=== PATIENT | female | born 1950 | race Caucasian/White ===

== ENCOUNTER 2018-01-23 07:38 | Emergency (ER) | payer OTHER, MEDICARE ==
[~2018-01-23] VITALS: Ht 154.9 cm; Wt 85.1 kg
[2018-01-23 08:15] LABS: BASOPHIL (%) 0.4 % (0-1); EOSINOPHIL (%) 0.2 % (0-5); HEMATOCRIT 41.9 % (36.0-46.0); HEMOGLOBIN 13.9 G/DL (11.9-15.5); IMMATURE GRANULOCYTE (%) 0.1 % (0.0-0.7); LYMPHOCYTE (%) 8.5 % (15-42); LYMPHOCYTE COUNT 0.7 K/uL (1.0-2.8); MCH 30.9 PG (29.0-34.0); MCHC 33.2 G/DL (30.0-36.0); MCV 93.1 FL (83-99); MONOCYTE (%) 3.2 % (3-12); MONOCYTE COUNT 0.3 K/uL (0-0.8); NEUTROPHIL (%) 87.6 % (45-76); NEUTROPHIL COUNT 7.2 K/uL (1.8-6.4); PLATELET COUNT 218 K/uL (156-360); RBC DIS.WIDTH-CV 12.5 % (11.8-14.6); RBC DIS.WIDTH-SD 43.4 % (39-53); WHITE BLOOD COUNT 8.2 K/uL (4.1-10.2)
[2018-01-23 08:24] LABS: CHLORIDE 104 mEq/L (99-109); POTASSIUM 4.5 mEq/L (3.7-5.4); SODIUM 138 mEq/L (136-147)
[2018-01-23 08:25] LABS: GLUCOSE 120 mg/dL (70-99)
[2018-01-23 08:29] LABS: GFR ESTIMATE (CALCULATED) 59 mL/min/
[2018-01-23 08:30] LABS: UREA NITROGEN (BUN) 21 mg/dL (9-23)
[2018-01-23 08:41] LABS: APPEARANCE SL.HAZY ((CLEAR)); BILIRUBIN NEGATIVE; BLOOD LARGE; COLOR YELLOW ((YELLOW)); GLUCOSE (STRIP) NEGATIVE; KETONES NEGATIVE; LEUKOCYTES NEGATIVE; NITRITE NEGATIVE; PROTEIN (STRIP) 30; SPECIFIC GRAVITY 1.027 (1.000-1.030); UROBILINOGEN 0.2 MG/DL (0.2-1.0)
[2018-01-23 08:58] LABS: RED BLOOD CELLS 40-50 /HPF (0-5)
[2018-01-23 08:59] LABS: BACTERIA RARE /HPF; EPITHELIAL CELLS 1+ /HPF; MUCUS 1+ /LPF; WHITE BLOOD CELLS 0-5 /HPF (0-5)
[2018-01-23] MEDS ORDERED: PERCOCET 5/31 TABLET PO (09:31)
[2018-01-23] MEDS ORDERED: ZOFRAN4 MG PO (09:31)
[2018-01-23] MEDS ORDERED: FLOMAX0.4 MG PO (09:31)
[2018-01-23 09:51] VITALS: BP 142/69
== END 2018-01-23 09:55 | disposition home or self-care (01) ==
LOC: EME 07:38
PROVIDERS: Emergency Medicine
DX: N20.1 Calculus of ureter (principal); Z86.73 Personal history of transient ischemic attack (TIA), and cerebral infarction without residual deficits; Z96.653 Presence of artificial knee joint, bilateral
CPT/HCPCS: 74176; 80048; 81003; 85025; 99281; 99284